=== PATIENT | male | born 1995 | race African-American/Black ===

== ENCOUNTER 2023-02-27 09:31 | Emergency (ER) | payer SELFPAY ==
[2023-02-27] MEDS ORDERED: Polyethylene Glycol 3350 Powder 17 GM Packet PO ONE (09:53)
== END 2023-02-27 10:32 | disposition home or self-care (01) ==
LOC: JD.ED 09:31
DX: K64.8 Other hemorrhoids (principal); K59.09 Other constipation; Z91.041 Radiographic dye allergy status; Z88.0 Allergy status to penicillin; Z91.013 Allergy to seafood
CPT/HCPCS: 99282; A9270; 99283